=== PATIENT | female | born 1950 | race Caucasian/White ===

== ENCOUNTER 2019-02-12 09:30 | Emergency (ER) | payer MEDICARE ==
[~2019-02-12] VITALS: Ht 165.1 cm; Wt 74.0 kg
[2019-02-12 12:18] VITALS: BP 122/62
== END 2019-02-12 12:22 | disposition home or self-care (01) ==
LOC: ED 12:16
DX: E86.0 Dehydration (principal); R11.2 Nausea with vomiting, unspecified; R19.7 Diarrhea, unspecified; I10 Essential (primary) hypertension; E78.5 Hyperlipidemia, unspecified
CPT/HCPCS: 36415; 80048; 81001; 82040; 85025; 93005; 96361; 96374; 99284; J2405; J7030; J7040; Q0162